=== PATIENT | male | born 1955 | race American Indian/Alaskan Native ===

== ENCOUNTER 2016-05-19 10:25 | Inpatient (IN) | payer MEDICARE ==
--- NOTE | 2016-05-19 11:05 | XRay Report ---
CHEST 2 VIEWS INDICATION: Shortness of breath. COMPARISON: 02/14/2014 FINDINGS: Frontal and lateral chest radiographs, 4 images, demonstrate normal cardiomediastinal silhouette, clear lungs and slight lower thoracic spine degenerative spurring. EKG leads. CONCLUSION: No acute disease. Thank you for the opportunity to participate in this patient's care.
[2016-05-19 11:34] LABS: Basophils % (Auto) 0.3 % (0.0-1.8); Eosinophils % (Auto) 0.5 % (0.0-4.3); Hematocrit 43.9 % (35.5-45.6); Hemoglobin 14.3 gm/dl (11.8-15.2); Mean Corpuscular HGB Conc 33 % (32-34); Mean Corpuscular Hemoglobin 28 pg (28-32); Mean Corpuscular Volume 86 fl (84-94); Platelet Count 180 K/mm3 (140-440); Red Blood Count 5.13 M/mm3 (3.65-5.03); White Blood Count 7.8 K/mm3 (4.5-11.0)
[2016-05-19] MEDS ORDERED: MAGNESIUM SULFATE 2GM/50ML 50 ML IV ONE (11:43)
[2016-05-19] MEDS ORDERED: NACL 0.9% 1000 ML 1,000 ML IV ONE (11:43)
[2016-05-19] MEDS ORDERED: ATROVENT IH ONE (11:43)
[2016-05-19] MEDS ORDERED: PROVENTIL IH ONE (11:43)
[2016-05-19] MEDS ORDERED: TYLENOL PO ONE (11:43)
--- NOTE | 2016-05-19 11:45 | Emergency Department Report ---
ED Shortness of Breath HPI - General Chief Complaint: Dyspnea/Respdistress Stated Complaint: SCOOTER Time Seen by Provider: 05/19/16 11:35 Source: patient, EMS (ems notes not available at time of chart dictation), RN notes reviewed, old records reviewed Mode of arrival: Stretcher Limitations: Physical Limitation - History of Present Illness Initial Comments: This is a 60-year-old male, previously unknown to me. Has a past medical history of obesity, hypertension, high cholesterol, COPD. He is typically not on home oxygen. He presents to the ER with shortness of breath. Started yesterday. Symptoms are constant. They're worse with physical exertion, decreased with rest. He admits to increased cough, increased mucus production. There is no leg pain, there is no leg swelling, no recent trips. No personal history of DVT or pulmonary embolus. He admits to mild chest pressure. There is no history of intracranial hemorrhage, hematemesis or bright red blood per rectum. He denies orthopnea MD Complaint: shortness of breath -: Gradual Quality: aching Consistency: intermittent Improves With: oxygen, rest, bronchodilators, upright position, medication Worsens With: lying flat, exertion Known History Of: COPD Context: recent URI Associated Symptoms: cough - Related Data Home Medications Medication Instructions Recorded Confirmed Last Taken ISOSORBIDE MONOnitrate [Imdur ER] 60 mg PO QDAY 02/14/14 05/19/16 Unknown Simvastatin 20 mg PO QHS 02/14/14 05/19/16 Unknown amLODIPine [Norvasc] 10 mg PO DAILY 02/14/14 05/19/16 Unknown cloNIDine [Catapres] 0.1 mg PO BID 02/14/14 05/19/16 Unknown metFORMIN [Glucophage] 500 mg PO BID 02/14/14 05/19/16 Unknown Previous Rx's Medication Instructions Recorded Last Taken Type Albuterol Sulfate [Ventolin HFA] 2 puff IH Q4H PRN #1 pump 05/21/16 Unknown Rx Azithromycin [Zithromax] 250 mg PO DAILY #5 tablet 05/21/16 Unknown Rx Prednisone [predniSONE 5 mg (6-Day 5 mg PO .TAPER #1 tab.ds.pk 05/21/16 Unknown Rx Pack, 21 Tabs)] Allergies Allergy/AdvReac Type Severity Reaction Status Date / Time No Known Allergies Allergy Verified 05/19/16 10:32 ED Review of Systems ROS: Stated complaint: SCOOTER Other details as noted in HPI Constitutional: malaise ENT: congestion Respiratory: cough, SOB with exertion, wheezing Cardiovascular: dyspnea on exertion Gastrointestinal: denies: hematemesis, melena, hematochezia Genitourinary: as per HPI Musculoskeletal: as per HPI Skin: as per HPI Neurological: as per HPI, weakness Psychiatric: as per HPI Hematological/Lymphatic: denies: easy bleeding ED Past Medical Hx - Past Medical History Previous Medical History?: Yes Hx Hypertension: Yes Hx Diabetes: Yes Hx Arthritis: Yes (hip) Hx COPD: Yes (No home O2) - Surgical History Past Surgical History?: Yes Additional Surgical History: hernia. right knee surgery - Social History Smoking Status: Current Every Day Smoker Substance Use Type: None - Medications Home Medications: Home Medications Medication Instructions Recorded Confirmed Last Taken Type ISOSORBIDE MONOnitrate [Imdur ER] 60 mg PO QDAY 02/14/14 05/19/16 Unknown History Simvastatin 20 mg PO QHS 02/14/14 05/19/16 Unknown History amLODIPine [Norvasc] 10 mg PO DAILY 02/14/14 05/19/16 Unknown History cloNIDine [Catapres] 0.1 mg PO BID 02/14/14 05/19/16 Unknown History metFORMIN [Glucophage] 500 mg PO BID 02/14/14 05/19/16 Unknown History Albuterol Sulfate [Ventolin HFA] 2 puff IH Q4H PRN #1 pump 05/21/16 Unknown Rx Azithromycin [Zithromax] 250 mg PO DAILY #5 tablet 05/21/16 Unknown Rx Prednisone [predniSONE 5 mg (6-Day 5 mg PO .TAPER #1 tab.ds.pk 05/21/16 Unknown Rx Pack, 21 Tabs)] ED Physical Exam - General Limitations: No Limitations, Physical Limitation General appearance: alert, in no apparent distress - Head Head exam: Present: atraumatic, normocephalic - Eye Eye exam: Present: normal appearance, EOMI. Absent: nystagmus - ENT ENT exam: Present: normal exam, normal orophraynx, mucous membranes moist - Neck Neck exam: Present: normal inspection, full ROM. Absent: tenderness, meningismus - Respiratory Respiratory exam: Present: respiratory distress, decreased breath sounds. Absent: wheezes, rales, rhonchi - Cardiovascular Cardiovascular Exam: Present: normal rhythm, tachycardia, normal heart sounds. Absent: systolic murmur, diastolic murmur, rubs, gallop - GI/Abdominal GI/Abdominal exam: Present: soft, normal bowel sounds. Absent: distended, tenderness, guarding, rebound, rigid, pulsatile mass - Rectal Rectal exam: Present: deferred - Extremities Exam Extremities exam: Present: normal inspection, full ROM, normal capillary refill , other (is no palpable cord. There is a negative Homans sign.). Absent: tenderness, pedal edema, joint swelling, calf tenderness - Back Exam Back exam: Present: normal inspection, full ROM. Absent: tenderness, CVA tenderness (R), CVA tenderness (L), muscle spasm, paraspinal tenderness, vertebral tenderness - Neurological Exam Neurological exam: Present: alert, oriented X3, other (Extraocular movements intact. Tongue midline. No facial droop. Facial sensation intact to light touch in the V1, V2, V3 distribution bilaterally. 5 and 5 strength in 4 extremities.. Sensation is intact to light touch in 4 extremities.). Absent: motor sensory deficit - Psychiatric Psychiatric exam: Present: normal affect, normal mood - Skin Skin exam: Present: warm, dry, intact, normal color. Absent: rash ED Course Vital Signs 05/19/16 05/19/16 05/19/16 10:29 10:32 10:45 Temperature 97.7 F Pulse Rate 117 H Pulse Rate [ Bilateral Throughout] Respiratory 26 H 26 H Rate Respiratory Rate [Bilateral Throughout] Blood Pressure 167/89 167/89 Blood Pressure 167/89 [Left] O2 Sat by Pulse 91 85 90 Oximetry 05/19/16 05/19/16 05/19/16 11:00 12:00 13:00 Temperature Pulse Rate 113 H 110 H 102 H Pulse Rate [ 110 H Bilateral Throughout] Respiratory 37 H 33 H 18 Rate Respiratory 20 Rate [Bilateral Throughout] Blood Pressure 142/76 144/68 136/70 Blood Pressure [Left] O2 Sat by Pulse 88 88 90 Oximetry 05/19/16 05/19/16 05/19/16 13:11 13:38 14:00 Temperature Pulse Rate 102 H 106 H Pulse Rate [ 115 H Bilateral Throughout] Respiratory 24 20 Rate Respiratory 20 Rate [Bilateral Throughout] Blood Pressure 136/70 130/70 Blood Pressure [Left] O2 Sat by Pulse 89 89 Oximetry 05/19/16 05/19/16 05/19/16 14:18 14:35 15:00 Temperature Pulse Rate 100 H 103 H 105 H Pulse Rate [ Bilateral Throughout] Respiratory 19 18 Rate Respiratory Rate [Bilateral Throughout] Blood Pressure 136/70 130/70 130/97 Blood Pressure [Left] O2 Sat by Pulse 90 88 Oximetry 05/19/16 05/19/16 05/19/16 15:10 15:46 16:00 Temperature Pulse Rate 98 H 92 H Pulse Rate [ Bilateral Throughout] Respiratory 25 H 24 25 H Rate Respiratory Rate [Bilateral Throughout] Blood Pressure 130/97 110/51 Blood Pressure [Left] O2 Sat by Pulse 86 90 90 Oximetry 05/19/16 05/19/16 05/19/16 17:00 17:40 17:44 Temperature Pulse Rate 91 H 95 H 95 H Pulse Rate [ Bilateral Throughout] Respiratory 23 18 Rate Respiratory Rate [Bilateral Throughout] Blood Pressure 106/61 112/50 Blood Pressure 112/50 [Left] O2 Sat by Pulse 88 90 Oximetry - Reevaluation(s) Reevaluation #1: 05/19/16 14:10 Differential diagnosis: COPD, bronchitis, pneumonia, acute coronary syndrome, pulmonary embolus, pneumothorax, hemothorax Assessment and plan: 60-year-old male with shortness of breath, tachypnea, probable obesity, probable pulmonary hypertension, probable combination of obstructive sleep apnea with superimposed obesity hypoventilation syndrome with shortness of breath, and hypoxemic respiratory failure. There are no pulmonary embolus or DVT risk factors, he is low risk by well's criteria, there are no contraindications to systemic anticoagulation. While I most likely suspect that the patient has COPD with an acute exacerbation , given his diminished breath sounds, a d-dimer was ordered, and was elevated. At this point in time, the nuclear medicine machine is not working, and the CT angiogram also not working. He was loaded empirically with 1 mg/kg of Lovenox for therapeutic treatment of possible pulmonary embolus. I have discussed the case with the Hospital physician, Dr. Garces, who accepts the patient to his service. Chest x-ray not consistent with CHF, not consistent with pneumothorax. ED Medical Decision Making - Lab Data Result diagrams: 05/20/16 06:08 05/20/16 06:08 Vital Signs 05/19/16 05/19/16 05/19/16 10:29 10:32 10:45 Temperature 97.7 F Pulse Rate 117 H Pulse Rate [ Bilateral Throughout] Respiratory 26 H 26 H Rate Respiratory Rate [Bilateral Throughout] Blood Pressure 167/89 167/89 Blood Pressure 167/89 [Left] O2 Sat by Pulse 91 85 90 Oximetry 05/19/16 05/19/16 05/19/16 11:00 12:00 13:00 Temperature Pulse Rate 113 H 110 H 102 H Pulse Rate [ 110 H Bilateral Throughout] Respiratory 37 H 33 H 18 Rate Respiratory 20 Rate [Bilateral Throughout] Blood Pressure 142/76 144/68 136/70 Blood Pressure [Left] O2 Sat by Pulse 88 88 90 Oximetry 05/19/16 13:11 Temperature Pulse Rate Pulse Rate [ 115 H Bilateral Throughout] Respiratory Rate Respiratory 20 Rate [Bilateral Throughout] Blood Pressure Blood Pressure [Left] O2 Sat by Pulse Oximetry Labs 05/19/16 05/19/16 05/19/16 11:09 11:09 11:09 WBC 7.8 RBC 5.13 H Hgb 14.3 Hct 43.9 MCV 86 MCH 28 MCHC 33 RDW 15.0 Plt Count 180 Lymph % (Auto) 7.6 L [place] % (Auto) 12.4 H Eos % (Auto) 0.5 Baso % (Auto) 0.3 Lymph # 0.6 L [place] # 1.0 H Eos # 0.0 Baso # 0.0 Seg Neutrophils % 79.2 H Seg Neutrophils # 6.1 PT INR D-Dimer POC ABG pH POC ABG pCO2 POC ABG pO2 POC ABG HCO3 POC ABG Total CO2 POC ABG O2 Sat POC ABG Base Excess FiO2 Sodium 141 Potassium 3.5 L Chloride 101.0 Carbon Dioxide 25 Anion Gap 19 BUN 16 Creatinine 1.0 Estimated GFR > 60 BUN/Creatinine Ratio 16.00 Glucose 161 H Calcium 9.1 Troponin T < 0.010 NT-Pro-B Natriuret Pep 615.9 05/19/16 05/19/16 11:56 13:09 WBC RBC Hgb Hct MCV MCH MCHC RDW Plt Count Lymph % (Auto) [place] % (Auto) Eos % (Auto) Baso % (Auto) Lymph # [place] # Eos # Baso # Seg Neutrophils % Seg Neutrophils # PT 14.8 INR 1.17 H D-Dimer 274.08 H POC ABG pH 7.398 POC ABG pCO2 43.1 POC ABG pO2 56 L POC ABG HCO3 26.6 POC ABG Total CO2 28 POC ABG O2 Sat 88 POC ABG Base Excess 2 FiO2 32 Sodium Potassium Chloride Carbon Dioxide Anion Gap BUN Creatinine Estimated GFR BUN/Creatinine Ratio Glucose Calcium Troponin T NT-Pro-B Natriuret Pep - EKG Data 05/19/16 14:12 sinus tachycardia, left axis deviation, borderline left anterior fascicular block, poor R wave progression, borderline atrial enlargement. Abnormal EKG. Morphologically consistent with STEMI. When compared to old EKG from 2014, left axis deviation appears to be new. - Radiology Data Radiology results: report reviewed, image reviewed Chest x-ray demonstrates no acute disease Critical care attestation.: If time is entered above; I have spent that time in minutes in the direct care of this critically ill patient, excluding procedure time. ED Disposition Clinical Impression: Acute hypoxemic respiratory failure, COPD exacerbation Disposition: OP ADMITTED IP TO THIS HOSP Is pt being admited?: Yes Does the pt Need Aspirin: Yes Condition: Good
[2016-05-19 11:49] LABS: Anion Gap 19 mmol/L; Blood Urea Nitrogen 16 mg/dL (9-20); Calcium 9.1 mg/dL (8.4-10.2); Carbon Dioxide 25 mmol/L (22-30); Glucose 161 mg/dL (75-100); Potassium 3.5 mmol/L (3.6-5.0); Sodium 141 mmol/L (137-145)
[2016-05-19 12:14] LABS: INR 1.17 (0.87-1.13)
[2016-05-19] MEDS ORDERED: LOVENOX SUB-Q STA (12:38)
--- NOTE | 2016-05-19 12:40 | Admit Criteria Form ---
<DOLORESLUCIE - Last Filed: 05/19/16 12:43> Admission Criteria Documentation: PNEUMONIA, COMMUNITY ACQUIRED Clinical Indications for Admission to Inpatient Care ( Place 'X' for any and all applicable criteria): Admission is indicated for ANY ONE of the following (1)(2)(3): [ ]I. Hypoxemia indicated by ANY ONE of the following: [ ]a) Oxygen saturation less than 90% while breathing room air [ ]b) PO2 less than 60 mm Hg (8.0 kPa) while breathing room air [ ]c) Chronic lung disease with significant deterioration from baseline oxygenation [ ]II. Appropriate diagnostic testing and treatment unavailable in outpatient or recovery facility (eg,testing or infection control measures unavailable(10) [ ]III. Moderate-risk or high-risk category patients (Pneumonia Severity Index (PSI) class IV or V, or CURB-65 score of 3 or greater). [ ]IV. Outpatient treatment failure as indicated by ANY ONE of the following(9) : [ ]a) Failure to respond to antibiotic (eg, resistant organism) [ ]b) Clinically significant adverse effects from medication (eg, vomiting) [ ]c) Complications of pneumonia (eg, empyema, bacteremia) [ ]d) Significant worsening of comorbid cond necessitating inpatient care (eg, chronic heart failure) [X ]V. Intermediate-risk category patients (eg, PSI class III or CURB-65 score 2) who do not improve with initial therapy and observation. [ ]. Immunocompromised patients (eg, AIDS, chronic steroid use) at moderate or high risk based on clinical evaluation. [ ]VII. Complicated pleural effusions (eg, exudative, loculated) [ ]VIII.Hemodynamic instability [ ] IX. Altered mental status that is severe or persistent. [ ]X. Dehydration that is severe or persistent. [ ]XI. Bacteremia [ ]XII. Respiratory finding (eg. tachypnea) that do not respond to outpatient or observation care treatment Extended stay beyond goal length of stay may be needed for (20) [ ]a) Unclear diagnosis [ ]b) Pleural disease [ ]c) Severe pneumonia or treatment failure (25 [ ]d) Respiratory failure (anticipate invasive or noninvasive ventilatory support) [ ]e) Abnormal serum electrolytes (serum Na concentration less than 135 mEq/L (mmol/L) (32)(33) [ ]f) Clinically significant comorbid illness (eg, heart failure, atrial fibrillation with rapid heart rate, alcohol withdrawal, renal insufficiency)(34)(35) [ ]g) Comorbid acute exacerbation of COPD(36) [ ]h) Concomitant diagnosis of malignancy that may be associated with malnutrition, immunologic impairment, or bronchial obstruction. [ ]i) Concomitant altered mental status [ ]j) Culture-identified Gram-negative or antibiotic-resistant organism (eg, Pseudomonas, methicillin-resistant Staphylococcus aureus)(30) [ ]k) Healthcare-associated pneumonia The original [employer] content created by [employer] has been revised. The portions of the content which have been revised are identified through the use of italic text or in bold, and [facility] has neither reviewed nor approved the modified material. All other unmodified content is copyright [employer]. Please see references footnoted in the original [employer] edition 2016 Admission Criteria Met: Pending <YOBANI CHILD - Last Filed: 05/19/16 14:59> Admission Criteria Met: Yes
[2016-05-19 13:13] LABS: ISTAT Base Excess 2; ISTAT HCO3 26.6; ISTAT PCO2 43.1 (35-45); ISTAT PH 7.398 (7.35-7.45); ISTAT PO2 56 (80-105); ISTAT SO2 88; ISTAT TCO2 28
--- NOTE | 2016-05-19 13:48 | Event Note ---
Date: 05/19/16 See H/p in reports COPD Exacerbation HTN T2DM HLD CAD
[2016-05-19] MEDS ORDERED: LOVENOX SUB-Q ONE ×2 (14:00)
[2016-05-19] MEDS ORDERED: MILK OF MAGNESIA PO PRN (14:08)
[2016-05-19] MEDS ORDERED: DULCOLAX PR PRN (14:08)
[2016-05-19] MEDS ORDERED: TYLENOL PO PRN (14:08)
[2016-05-19] MEDS ORDERED: ZOFRAN IV PRN (14:08)
[2016-05-19] MEDS ORDERED: DILAUDID IV PRN (14:09)
[2016-05-19] MEDS ORDERED: PERCOCET 5/325 PO PRN (14:09)
[2016-05-19] MEDS ORDERED: DUONEB 0.5 MG-3 MG/3 ML SOLN IH PRN (14:10)
[2016-05-19] MEDS ORDERED: ASPIRIN PO STA (14:13)
[2016-05-19] MEDS ORDERED: PROVENTIL IH PRN (14:28)
[2016-05-19] MEDS: GLUCOPHAGE PO SCH ×2 (14:35→22:43)
[2016-05-19] MEDS: CATAPRES PO SCH ×2 (14:35→22:41)
[2016-05-19] MEDS: NORVASC PO SCH (14:35)
[2016-05-19] MEDS: DUONEB 0.5 MG-3 MG/3 ML SOLN IH SCH ×2 (14:38→20:15)
[2016-05-19] MEDS ORDERED: NACL 0.45% 1000 ML 1,000 ML IV SCH (15:00)
--- NOTE | 2016-05-19 15:22 | History and Physical Report ---
CHIEF COMPLAINT: Increasing shortness of breath for 2 days. HISTORY OF PRESENT ILLNESS: A 60-year-old male, obese, disheveled, presents to the ER with shortness of breath for the last 2 days, started yesterday. Symptoms are constant, worse with minimal exertion. Cough productive of mucoid sputum. No yellow sputum. No fever. No chills. The patient has history of obesity, hypertension, high cholesterol, and COPD. No chest pain. No palpitations. No recent travel. PAST MEDICAL HISTORY: Significant for hypertension, coronary artery disease, hyperlipidemia, type 2 diabetes mellitus. CURRENT MEDICATIONS: Isosorbide mononitrate 60 mg daily, simvastatin 20 mg p.o. daily, amlodipine 10 mg p.o. daily, clonidine 0.1 p.o. b.i.d., metformin 500 mg p.o. b.i.d. PAST SURGICAL HISTORY: Significant for hernia repair and right knee surgery. SOCIAL HISTORY: Current everyday smoker. Says he can do without Nicoderm patch while in the hospital. FAMILY HISTORY: Significant for hypertension. REVIEW OF SYSTEMS: Significant for shortness of breath on minimal exertion and wheezing and cough productive of mucoid sputum. No fever. No chills. No leg pain or swelling. A 14 point review of systems done and essentially otherwise negative. PHYSICAL EXAMINATION: GENERAL: Elderly male who looks older than his age. VITAL SIGNS: Blood pressure is 142/76, pulse is 113, respiratory rate is 37, sats are 88%. HEENT: Unremarkable. Pupils equal and reactive. NECK: Supple. No lymphadenopathy. No thyromegaly. LUNGS: Scattered rhonchi and rales bilaterally, both inspiratory and expiratory. EXTREMITIES: Good pedal pulses. No pedal edema. CENTRAL NERVOUS SYSTEM: Alert and oriented x 4. Nonfocal exam. SKIN: Normal. LABORATORY DATA AND IMAGING STUDIES: Chest x-ray shows COPD, no acute infiltrate. EKG shows normal sinus rhythm. Labs are significant for white count of 7,800, H and H of 14.3 and 43.9, platelet count of 180,000. D-dimer is 274.08, pCO2 is 43.1, pH is 7.39, pO2 is 56, ABG sats are 88%. Potassium was slightly low at 3.5, glucose is 161. Otherwise, BUN and creatinine 16 and 1.0. ASSESSMENT AND PLAN: 1. Chronic obstructive pulmonary disease exacerbation. The patient is slightly hypoxic, borderline acute respiratory failure. Continue DuoNeb every 6 hours round the clock and every 3 p.r.n. The patient does not need intubation. The patient is stable at this point. 2. Hypertension. Continue clonidine 0.1 b.i.d. and amlodipine 10 mg daily. 3. Coronary artery disease. Continue Imdur 60 mg daily. 4. Type 2 diabetes mellitus. Continue metformin 500 b.i.d. 5. Hyperlipidemia. Continue simvastatin 20 mg p.o. daily. 6. Deep venous thrombosis prophylaxis. Lovenox 40 mg subcutaneous daily. suspicion of pulmonary edema, but CT angiography and VQ scan are not available. Clinically, I do not suspect any pulmonary embolism. We will cover for pulmonary embolism for the time being. He was given one dose of Lovenox. JOB# [id number] ELBA/TI
[2016-05-19] MEDS: LEVAQUIN 750MG/150ML 150 ML IV SCH (15:43)
[2016-05-19] MEDS: IMDUR PO SCH (17:44)
[2016-05-19] MEDS: ZOCOR PO SCH (22:42)
[2016-05-20] MEDS: DUONEB 0.5 MG-3 MG/3 ML SOLN IH SCH ×4 (02:36→20:47)
[2016-05-20 06:42] LABS: Basophils % (Auto) 0.1 % (0.0-1.8); Hematocrit 39.9 % (35.5-45.6); Hemoglobin 13.1 gm/dl (11.8-15.2); Mean Corpuscular HGB Conc 33 % (32-34); Mean Corpuscular Hemoglobin 28 pg (28-32); Mean Corpuscular Volume 86 fl (84-94); Platelet Count 166 K/mm3 (140-440); Red Blood Count 4.66 M/mm3 (3.65-5.03); Red Cell Distribution Width 15.2 % (13.2-15.2); White Blood Count 8.2 K/mm3 (4.5-11.0)
[2016-05-20 07:00] LABS: Alanine Aminotransferase 18 units/L (7-56); Albumin 3.6 g/dL (3.9-5); Albumin/Globulin Ratio 1.3 %; Alkaline Phosphatase 98 units/L (35-129); BUN/Creatinine Ratio 23.75; Bilirubin,Total < 0.2 mg/dL (0.1-1.2); Blood Urea Nitrogen 19 mg/dL (9-20); Calcium 9.2 mg/dL (8.4-10.2); Carbon Dioxide 26 mmol/L (22-30); Chloride 102.2 mmol/L (98-107); Glucose 250 mg/dL (75-100); Sodium 142 mmol/L (137-145); Total Protein 6.3 g/dL (6.3-8.2)
[2016-05-20 07:02] LABS: Anion Gap 18 mmol/L
[2016-05-20] MEDS: CATAPRES PO SCH ×2 (09:30→21:54)
[2016-05-20] MEDS: LEVAQUIN 750MG/150ML 150 ML IV SCH (09:30)
[2016-05-20] MEDS: NORVASC PO SCH (09:31)
[2016-05-20] MEDS: IMDUR PO SCH (09:31)
[2016-05-20] MEDS: GLUCOPHAGE PO SCH ×2 (09:31→21:55)
--- NOTE | 2016-05-20 16:29 | Progress Note ---
Assessment and Plan Assessment and plan: COPD exacerbation Acute resp failure History Interval history: less sob Hospitalist Physical - Constitutional Vitals: Temp Pulse Resp BP Pulse Ox 98.0 F 88 18 120/62 92 05/20/16 11:39 05/20/16 14:00 05/20/16 13:15 05/20/16 11:39 05/20/16 11:39 Results - Labs CBC & Chem 7: 05/20/16 06:08 05/20/16 06:08 Labs: Laboratory Last Values WBC 8.2 K/mm3 (4.5-11.0) 05/20/16 06:08 RBC 4.66 M/mm3 (3.65-5.03) 05/20/16 06:08 Hgb 13.1 gm/dl (11.8-15.2) 05/20/16 06:08 Hct 39.9 % (35.5-45.6) 05/20/16 06:08 MCV 86 fl (84-94) 05/20/16 06:08 MCH 28 pg (28-32) 05/20/16 06:08 MCHC 33 % (32-34) 05/20/16 06:08 RDW 15.2 % (13.2-15.2) 05/20/16 06:08 Plt Count 166 K/mm3 (140-440) 05/20/16 06:08 Lymph % (Auto) 5.5 % (13.4-35.0) L 05/20/16 06:08 [place] % (Auto) 4.9 % (0.0-7.3) 05/20/16 06:08 Eos % (Auto) 0.0 % (0.0-4.3) 05/20/16 06:08 Baso % (Auto) 0.1 % (0.0-1.8) 05/20/16 06:08 Lymph # 0.5 K/mm3 (1.2-5.4) L 05/20/16 06:08 [place] # 0.4 K/mm3 (0.0-0.8) 05/20/16 06:08 Eos # 0.0 K/mm3 (0.0-0.4) 05/20/16 06:08 Baso # 0.0 K/mm3 (0.0-0.1) 05/20/16 06:08 Seg Neutrophils % 89.5 % (40.0-70.0) H 05/20/16 06:08 Seg Neutrophils # 7.3 K/mm3 (1.8-7.7) 05/20/16 06:08 PT 14.8 Sec. (12.2-14.9) 05/19/16 11:56 INR 1.17 (0.87-1.13) H 05/19/16 11:56 D-Dimer 274.08 ng/mlDDU (0-234) H 05/19/16 11:56 POC ABG pH 7.398 (7.35-7.45) 05/19/16 13:09 POC ABG pCO2 43.1 (35-45) 05/19/16 13:09 POC ABG pO2 56 (80-105) L 05/19/16 13:09 POC ABG HCO3 26.6 05/19/16 13:09 POC ABG Total CO2 28 05/19/16 13:09 POC ABG O2 Sat 88 05/19/16 13:09 POC ABG Base Excess 2 05/19/16 13:09 FiO2 32 % 05/19/16 13:09 Sodium 142 mmol/L (137-145) 05/20/16 06:08 Potassium 4.0 mmol/L (3.6-5.0) 05/20/16 06:08 Chloride 102.2 mmol/L (98-107) 05/20/16 06:08 Carbon Dioxide 26 mmol/L (22-30) 05/20/16 06:08 Anion Gap 18 mmol/L 05/20/16 06:08 BUN 19 mg/dL (9-20) 05/20/16 06:08 Creatinine 0.8 mg/dL (0.8-1.5) 05/20/16 06:08 Estimated GFR > 60 ml/min 05/20/16 06:08 BUN/Creatinine Ratio 23.75 % 05/20/16 06:08 Glucose 250 mg/dL (75-100) H 05/20/16 06:08 POC Glucose 257 (70-105) H 05/20/16 11:38 Calcium 9.2 mg/dL (8.4-10.2) 05/20/16 06:08 Total Bilirubin < 0.2 mg/dL (0.1-1.2) 05/20/16 06:08 AST 22 units/L (5-40) 05/20/16 06:08 ALT 18 units/L (7-56) 05/20/16 06:08 Alkaline Phosphatase 98 units/L (35-129) 05/20/16 06:08 Troponin T < 0.010 ng/mL (0.00-0.029) 05/19/16 11:09 NT-Pro-B Natriuret Pep 615.9 pg/mL (0-900) 05/19/16 11:09 Total Protein 6.3 g/dL (6.3-8.2) 05/20/16 06:08 Albumin 3.6 g/dL (3.9-5) L 05/20/16 06:08 Albumin/Globulin Ratio 1.3 % 05/20/16 06:08
[2016-05-20] MEDS ORDERED: D50W (25GM) IV PRN (18:10)
[2016-05-20] MEDS: ZOCOR PO SCH (21:55)
[2016-05-20] MEDS ORDERED: NOVOLOG SUB-Q SCH (22:00)
[2016-05-21] MEDS: DUONEB 0.5 MG-3 MG/3 ML SOLN IH SCH ×3 (02:50→14:29)
[2016-05-21] MEDS ORDERED: LEVEMIR SUB-Q SCH (08:00)
[2016-05-21] MEDS: NOVOLOG SUB-Q SCH ×3 (08:54→18:09)
[2016-05-21] MEDS: NORVASC PO SCH (09:51)
[2016-05-21] MEDS: GLUCOPHAGE PO SCH (09:51)
[2016-05-21] MEDS: IMDUR PO SCH (09:52)
[2016-05-21] MEDS: CATAPRES PO SCH (09:52)
[2016-05-21] MEDS ORDERED: LEVAQUIN PO SCH (10:00)
[2016-05-21 12:15] VITALS: BP 118/62
--- NOTE | 2016-05-21 15:23 | Discharge Summary ---
Providers - Providers Date of Admission: 05/19/16 12:38 Date of discharge: 05/21/16 Attending physician: SHEYLA JAY Primary care physician: TERRAZZO MECHANIC HELPER Hospitalization Condition: Good Disposition: DISCHARGED TO HOME OR SELFCARE - Discharge Diagnoses (1) Acute hypoxemic respiratory failure Status: Acute (2) COPD exacerbation Status: Acute (3) Diabetes Status: Chronic Qualifiers: Diabetes mellitus type: type 2 (4) HTN (hypertension) Status: Acute (5) Morbid obesity with BMI of 40.0-44.9, adult Status: Acute Core Measure Documentation - Palliative Care Palliative Care/ Comfort Measures: Not Applicable - Core Measures Any of the following diagnoses?: none Exam - Constitutional Vitals: Temp Pulse Resp BP Pulse Ox 98.2 F 95 H 18 118/62 95 05/21/16 12:14 05/21/16 14:41 05/21/16 14:41 05/21/16 12:14 05/21/16 12:14 General appearance: Present: no acute distress Plan Activity: no restrictions Diet: low fat, low cholesterol, low salt, diabetic Special Instructions: home health RN Durable Medical Equipment Needed Upon Discharge: Oxygen Additional Instructions: 1.Follow up with PCP in 3-5 days. 2.Home oxygen at 3l/ min [place] continuous. Follow up with: PRIMARY CARE, [Primary Care Provider] - 7 Days Prescriptions: Albuterol Sulfate [Ventolin HFA] 2 puff IH Q4H PRN #1 pump PRN Reason: Shortness Of Breath Prednisone [predniSONE 5 mg (6-Day Pack, 21 Tabs)] 5 mg PO .TAPER #1 tab.ds.pk
== END 2016-05-21 18:59 | disposition home or self-care (01) | DRG 189 ==
LOC: ED 10:25 → 4A 12:38
PROVIDERS: ADMIT Internal Medicine; ATTEND Internal Medicine
PROC: 4A033R1 Measurement of Arterial Saturation, Peripheral, Percutaneous Approach (ICD-10-PCS; principal; 2016-05-19)
DX: J96.01 Acute respiratory failure with hypoxia (principal); J44.1 Chronic obstructive pulmonary disease with (acute) exacerbation; Z68.41 Body mass index [BMI] 40.0-44.9, adult; I25.10 Atherosclerotic heart disease of native coronary artery without angina pectoris; E78.5 Hyperlipidemia, unspecified; E78.00 Pure hypercholesterolemia, unspecified; F17.200 Nicotine dependence, unspecified, uncomplicated; M16.10 Unilateral primary osteoarthritis, unspecified hip; E11.9 Type 2 diabetes mellitus without complications; E66.01 Morbid (severe) obesity due to excess calories; Z98.890 Other specified postprocedural states; Z82.49 Family history of ischemic heart disease and other diseases of the circulatory system; Z79.899 Other long term (current) drug therapy
CPT/HCPCS: 36415; 71020; 80048; 80053; 82803; 82962; 83880; 84484; 85025; 85379; 85610; 93005; 93010; 94640; 94760; 96365; 96367; 96372; 96375; J1650; J1815; J1818; J1956; J2930; J3475; J7030

== ENCOUNTER 2016-07-09 17:10 | Emergency (ER) | payer MEDICARE ==
--- NOTE | 2016-07-09 22:47 | Emergency Department Report ---
ED Dizziness HPI - General Chief Complaint: Dizziness Stated Complaint: DIZZINESS Time Seen by Provider: 07/09/16 22:19 Source: patient, old records reviewed (patient has been admitted here for COPD exacerbation in the past last admission May 2016) Mode of arrival: Ambulatory Limitations: Physical Limitation - History of Present Illness Initial Comments: 60 year old male with a past medical history of arthritis of the right hip, COPD , diabetes, and hypertension presents to the hospital complains of lightheadedness. Patient states he initially had a lightheaded episode 2 days ago. This morning when waking he had a room spinning sensation followed by lightheadedness. He has not had any recurrent episodes throughout the day. He denies other symptoms including headache, chest pain, shortness of breath, nausea, vomiting, melena, hematochezia, diarrhea, or any pain. Patient uses 3 L of home oxygen as needed but on a she states he does not know when he needs to medication. PMD: Dr. Evans - Related Data Home Medications Medication Instructions Recorded Confirmed Last Taken ISOSORBIDE MONOnitrate [Imdur ER] 60 mg PO QDAY 02/14/14 05/19/16 Unknown Simvastatin 20 mg PO QHS 02/14/14 05/19/16 Unknown amLODIPine [Norvasc] 10 mg PO DAILY 02/14/14 05/19/16 Unknown cloNIDine [Catapres] 0.1 mg PO BID 02/14/14 05/19/16 Unknown metFORMIN [Glucophage] 500 mg PO BID 02/14/14 05/19/16 Unknown Previous Rx's Medication Instructions Recorded Last Taken Type Albuterol Sulfate [Ventolin HFA] 2 puff IH Q4H PRN #1 pump 05/21/16 Unknown Rx Azithromycin [Zithromax] 250 mg PO DAILY #5 tablet 05/21/16 Unknown Rx Prednisone [predniSONE 5 mg (6-Day 5 mg PO .TAPER #1 tab.ds.pk 05/21/16 Unknown Rx Pack, 21 Tabs)] Meclizine [Antivert] 25 mg PO TID PRN #30 tablet 07/10/16 Unknown Rx Potassium Chloride [K-Dur] 20 meq PO QDAY #4 tablet 07/10/16 Unknown Rx Allergies Allergy/AdvReac Type Severity Reaction Status Date / Time No Known Allergies Allergy Verified 05/19/16 10:32 ED Review of Systems ROS: Stated complaint: DIZZINESS Other details as noted in HPI Comment: All other systems reviewed and negative Other: Constitutional: No fevers chills Eyes: No eye pain visual changes ENT: No ear pain or throat pain Neck: Denies pain Respiratory: Denies cough wheezing shortness of breath Cardiovascular: Denies chest pain, palpitations, syncope GI: Denies abdominal pain, nausea, vomiting, diarrhea, melena, hematochezia : Denies dysuria Musculoskeletal: Chronic right hip pain secondary to arthritis patient in place with a cane Skin: Denies rash, lesions, erythema Neurologic: Denies headache, numbness, weakness Psychiatric: Denies suicidal ideation, hallucinations ED Past Medical Hx - Past Medical History Previous Medical History?: Yes Hx Hypertension: Yes Hx Diabetes: Yes Hx Arthritis: Yes (hip) Hx COPD: Yes (No home O2) - Surgical History Past Surgical History?: Yes Additional Surgical History: hernia. right knee surgery - Social History Smoking Status: Former Smoker Substance Use Type: Prescribed - Medications Home Medications: Home Medications Medication Instructions Recorded Confirmed Last Taken Type ISOSORBIDE MONOnitrate [Imdur ER] 60 mg PO QDAY 02/14/14 05/19/16 Unknown History Simvastatin 20 mg PO QHS 02/14/14 05/19/16 Unknown History amLODIPine [Norvasc] 10 mg PO DAILY 02/14/14 05/19/16 Unknown History cloNIDine [Catapres] 0.1 mg PO BID 02/14/14 05/19/16 Unknown History metFORMIN [Glucophage] 500 mg PO BID 02/14/14 05/19/16 Unknown History Albuterol Sulfate [Ventolin HFA] 2 puff IH Q4H PRN #1 pump 05/21/16 Unknown Rx Azithromycin [Zithromax] 250 mg PO DAILY #5 tablet 05/21/16 Unknown Rx Prednisone [predniSONE 5 mg (6-Day 5 mg PO .TAPER #1 tab.ds.pk 05/21/16 Unknown Rx Pack, 21 Tabs)] Meclizine [Antivert] 25 mg PO TID PRN #30 tablet 07/10/16 Unknown Rx Potassium Chloride [K-Dur] 20 meq PO QDAY #4 tablet 07/10/16 Unknown Rx ED Physical Exam - General Limitations: Physical Limitation - Other Other exam information: General: No limitations, patient is alert in no acute distress Head exam: Atraumatic, normocephalic Eyes exam: Normal appearance, extraocular movements intact, no nystagmus ENT: Moist mucous membrane, normal oropharynx Neck exam: Normal inspection, full range of motion, no meningismus nontender Respiratory exam: Clear to auscultation bilateral, no wheezes, rales, crackles Cardiovascular: Normal rate and rhythm, normal heart sounds Abdomen: Soft, nondistended, and nontender, with normal bowel sounds, no rebound, or guarding Extremity: There is a range of right hip secondary to chronic pain/arthritis. Back: Normal Inspection, full range of motion, no tenderness Neurologic: Alert, oriented x3, cranial nerves intact, no motor or sensory deficit, finger nose finger function intact Psychiatric: normal affect, normal mood Skin: Warm, dry, intact ED Course Vital Signs 07/09/16 07/09/16 07/09/16 17:35 22:21 22:22 Temperature 98.3 F Pulse Rate 88 77 Respiratory 18 16 16 Rate Blood Pressure 156/88 Blood Pressure 139/52 [Left] O2 Sat by Pulse 95 96 Oximetry 07/10/16 07/10/16 07/10/16 00:00 02:00 04:26 Temperature Pulse Rate 86 86 70 Respiratory 16 18 16 Rate Blood Pressure Blood Pressure 161/81 158/84 159/84 [Left] O2 Sat by Pulse 97 99 99 Oximetry - Reevaluation(s) Reevaluation #1: 07/09/16 22:55 HR increased gradient 20 points orthostatic vital signs/standing. Patient was dizzy. 1 L normal saline ordered. Po potassium given 07/10/16 04:30 Reevaluation #2: 07/10/16 00:31 After 1 L normal saline orthostatic vital signs improved a heart rate remained stable however, patient now states that with the spinning sensation that he feels with standing. Meclizine ordered as well as an additional liter of normal saline and will reasses Reevaluation #3: 07/10/16 03:22 After meclizine and 1 Liter normal saline patient appears to be in no acute distress. He states that when he stands up and attempted to do things he feels dizzy once again. CT ordered at this time and plan for admission to the hospital for persistent dizziness Reevaluation #4: 07/10/16 04:[address] and he states that he feels much better and no longer complains of dizziness therefore he will be discharged on Antivert ED Medical Decision Making - Lab Data Result diagrams: 07/09/16 22:50 07/09/16 22:50 Lab Results 07/09/16 07/09/16 Range/Units 22:50 22:50 WBC 10.5 (4.5-11.0) K/mm3 RBC 4.58 (3.65-5.03) M/mm3 Hgb 13.0 (11.8-15.2) gm/dl Hct 38.8 (35.5-45.6) % MCV 85 (84-94) fl MCH 28 (28-32) pg MCHC 34 (32-34) % RDW 15.4 H (13.2-15.2) % Plt Count 234 (140-440) K/mm3 Sodium 139 (137-145) mmol/L Potassium 3.2 L (3.6-5.0) mmol/L Chloride 98.3 (98-107) mmol/L Carbon Dioxide 24 (22-30) mmol/L Anion Gap 20 mmol/L BUN 16 (9-20) mg/dL Creatinine 0.7 L (0.8-1.5) mg/dL Estimated GFR > 60 ml/min BUN/Creatinine Ratio 22.85 % Glucose 173 H (75-100) mg/dL Calcium 9.8 (8.4-10.2) mg/dL Magnesium 1.9 (1.7-2.3) mg/dL - EKG Data -: EKG Interpreted by Me (sinus rate 83 possible anterior infarct) - EKG Data When compared to previous EKG there are: no significant change (compared to 07/2016) - Radiology Data Radiology results: report reviewed (ct head: naf) - Differential Diagnosis anemia, dehydration, orthostatics, vertigo Critical Care Time: No Critical care attestation.: If time is entered above; I have spent that time in minutes in the direct care of this critically ill patient, excluding procedure time. ED Disposition Clinical Impression: Vertigo, Dizziness, Hypokalemia Disposition: DISCHARGED TO HOME OR SELFCARE Is pt being admited?: No Does the pt Need Aspirin: No Condition: Stable Instructions: Vertigo (ED), Lightheadedness (ED) Additional Instructions: Take the medication as prescribed. Return if symptoms worsen Prescriptions: Meclizine [Antivert] 25 mg PO TID PRN #30 tablet PRN Reason: Vertigo Potassium Chloride [K-Dur] 20 meq PO QDAY #4 tablet Referrals: SARTHAK EVANS MD [Primary Care Provider] - 3-5 Days Time of Disposition: 04:33
[2016-07-09] MEDS ORDERED: NACL 0.9% 1000 ML 1,000 ML IV ONE (22:55)
[2016-07-09 23:02] LABS: Hematocrit 38.8 % (35.5-45.6); Mean Corpuscular HGB Conc 34 % (32-34); Mean Corpuscular Hemoglobin 28 pg (28-32); Mean Corpuscular Volume 85 fl (84-94); Platelet Count 234 K/mm3 (140-440); Red Blood Count 4.58 M/mm3 (3.65-5.03); Red Cell Distribution Width 15.4 % (13.2-15.2); White Blood Count 10.5 K/mm3 (4.5-11.0)
[2016-07-09 23:20] LABS: Anion Gap 20 mmol/L; BUN/Creatinine Ratio 22.85; Blood Urea Nitrogen 16 mg/dL (9-20); Calcium 9.8 mg/dL (8.4-10.2); Carbon Dioxide 24 mmol/L (22-30); Chloride 98.3 mmol/L (98-107); Glucose 173 mg/dL (75-100); Magnesium 1.9 mg/dL (1.7-2.3); Potassium 3.2 mmol/L (3.6-5.0); Sodium 139 mmol/L (137-145)
[2016-07-09] MEDS ORDERED: K-DUR PO ONE (23:23)
[2016-07-10] MEDS ORDERED: ANTIVERT PO ONE (00:30)
[2016-07-10] MEDS ORDERED: NACL 0.9% 1000 ML 1,000 ML IV ONE (00:30)
--- NOTE | 2016-07-10 04:17 | Cat Scan Report ---
FINAL REPORT PROCEDURE: CT HEAD/BRAIN WO CON TECHNIQUE: Computerized tomography of the head was performed without contrast material. HISTORY: dizzy COMPARISON: No prior studies are available for comparison. FINDINGS: Skull and scalp: Normal. Paranasal sinuses: Normal. Ventricles and subarachnoid spaces: Normal. Cerebrum: No evidence of hemorrhage, acute infarction or mass . Cerebellum and brainstem: No evidence of hemorrhage, acute infarction or mass. Vasculature: Normal. Comments: None. IMPRESSION: There is no evidence of an acute intracranial process
[2016-07-10 04:27] VITALS: BP 159/84
== END 2016-07-10 05:02 | disposition home or self-care (01) ==
LOC: ED 17:10
DX: R42 Dizziness and giddiness (principal); E87.6 Hypokalemia; I10 Essential (primary) hypertension; E11.9 Type 2 diabetes mellitus without complications; M19.90 Unspecified osteoarthritis, unspecified site; J44.9 Chronic obstructive pulmonary disease, unspecified; Z87.891 Personal history of nicotine dependence
CPT/HCPCS: 36415; 70450; 80048; 83735; 85027; 93005; 93010; 96360; 96361; 99284; J7030